=== PATIENT | female | born 2000 | race Caucasian/White ===

== ENCOUNTER → 2022-04-08 | Day surgery (SDC) | payer OTHER ==
[~2022-04-08] MED LIST: Acetaminophen 500 MG TAB ONE; Iron, Sodium Ferric Gluconate 250 MG in Sodium Chloride 0.9% 250 ML 250 ML IVPB SCH; diphenhydrAMINE 25 MG CAP ONE
== END ==
LOC: CSHSDC/OP 08:03
PROVIDERS: ATTEND Student in an Organized Health Care Education/Training Program
DX: N93.9 Abnormal uterine and vaginal bleeding, unspecified (principal)
CPT/HCPCS: J2916; J7050

== ENCOUNTER 2022-04-28 07:17 | Day surgery (SDC) | payer OTHER ==
[2022-04-26 11:36] VITALS: BMI 45.9
[2022-04-27 10:49] LABS: Hemoglobin 12.4 g/dL (12.0-15.5); Mean Corpuscular HGB CONC 31.2 g/dL (32.0-36.0); Mean Corpuscular Hemoglobin 25.6 pg (27.0-33.0); Mean Corpuscular Volume 82.1 fl (81.6-98.3); Mean Platelet Volume 11.1 fl (7.4-10.4); Platelet Count 286 10x3/uL (150-450); RBC Distribution Width 21.6 % (11.5-14.5); Red Blood Cell (RBC) Count 4.85 10x6/uL (3.90-5.03); White Blood Cell (WBC) Count 6.3 10x3/uL (3.5-10.5)
[2022-04-27 11:05] LABS: BHCG - Serum Negative (NEGATIVE); Pregs Control Background? CLEAR/WHITE (CLR/WHITE); Pregs Control Bar Appear? YES (CONTROL BAR)
[2022-04-28] MEDS ORDERED: CeleCOXIB 100 MG CAP ONE (07:32)
[2022-04-28] MEDS ORDERED: PROPOFOL 40 ML ONE (09:00)
[2022-04-28] MEDS ORDERED: Fentanyl 100 MCG/2 ML VIAL ONE (09:00)
[2022-04-28] MEDS ORDERED: Dexamethasone 20 MG/5 ML VIAL ONE (09:02)
[2022-04-28] MEDS ORDERED: Ondansetron PF 4 MG/2 ML Vial ONE (09:02)
[2022-04-28] MEDS ORDERED: Ketorolac Tromethamine 30 MG/ML VIAL ONE (09:03)
[2022-04-28] MEDS ORDERED: Glycopyrrolate 0.2 MG/ML 5 ML SYRINGE ONE (09:27)
[2022-04-28] MEDS ORDERED: HYDROcodone/Acetaminophen 5/325 mg Tablet ONE (10:05)
== END 2022-04-28 10:35 | disposition home or self-care (01) ==
LOC: CSHSDC 07:17
PROVIDERS: ATTEND Student in an Organized Health Care Education/Training Program
PROC: 0UDB8ZX Extraction of Endometrium, Via Natural or Artificial Opening Endoscopic, Diagnostic (ICD-10-PCS; principal; 2022-04-28)
DX: N93.9 Abnormal uterine and vaginal bleeding, unspecified (principal); G89.18 Other acute postprocedural pain; N85.8 Other specified noninflammatory disorders of uterus; D64.9 Anemia, unspecified; J45.909 Unspecified asthma, uncomplicated; E66.9 Obesity, unspecified; Z68.42 Body mass index [BMI] 45.0-49.9, adult; Z91.040 Latex allergy status; Z88.3 Allergy status to other anti-infective agents; Z79.899 Other long term (current) drug therapy; Z87.59 Personal history of other complications of pregnancy, childbirth and the puerperium
CPT/HCPCS: 36415; 84703; 85027; 86850; 86900; 86901; 88305; J1100; J1885; J2405; J2704; J3010

== ENCOUNTER 2023-03-20 14:08 | Day surgery (SDC) | payer BC, OTHER ==
[2023-03-20] MEDS ORDERED: hydrALAZINE 20 MG/ML VIAL SLOW IVP PRN (14:49)
[2023-03-20] MEDS: Lactated Ringer's 1,000 ML IV SCH (15:15)
[2023-03-20 15:16] VITALS: BMI 54.8
[2023-03-20 15:19] LABS: Bilirubin Neg (Negative); Blood, Urine Negative (Negative); Glucose, Urine (Dipstick) Normal (Negative); Ketone, Urine 150 mg/dL (Negative); Leukocyte Negative (Negative); Nitrite Negative (Negative); Protein, Urine (Dipstick) 30 mg/dl (Neg-Trace)
[2023-03-20 15:38] LABS: Clarity Clear (Clear)
[2023-03-20 15:44] LABS: Bacteria/HPF 1+ HPF (None Seen); CAUTI Indications for Culture Pregnancy; Mucous/LPF 2+ LPF (<2+); RBC/HPF 0-3 HPF (0-3); Renal Epithelial 0-3 HPF (None Seen); Transitional Epithelial 0-3 HPF (None Seen); WBC/HPF 0-3 HPF (0-3)
[2023-03-20 15:45] LABS: Urine Culture Reflex Yes Yes
[2023-03-20] MEDS ORDERED: Lactated Ringer's 1,000 ML IV SCH (16:30)
[2023-03-20] MEDS: metroNIDAZOLE 500 MG in Premix 1 BAG IVPB SCH (17:05)
== END 2023-03-20 17:38 | disposition home or self-care (01) ==
LOC: CSHLD/OP 14:08
PROVIDERS: ATTEND Student in an Organized Health Care Education/Training Program
DX: O47.03 False labor before 37 completed weeks of gestation, third trimester (principal); O99.213 Obesity complicating pregnancy, third trimester; E66.9 Obesity, unspecified; O99.283 Endocrine, nutritional and metabolic diseases complicating pregnancy, third trimester; E03.9 Hypothyroidism, unspecified; O99.513 Diseases of the respiratory system complicating pregnancy, third trimester; J45.909 Unspecified asthma, uncomplicated; O99.013 Anemia complicating pregnancy, third trimester; D64.9 Anemia, unspecified; O99.891 Other specified diseases and conditions complicating pregnancy; R35.0 Frequency of micturition; O23.593 Infection of other part of genital tract in pregnancy, third trimester; N89.8 Other specified noninflammatory disorders of vagina; Z79.899 Other long term (current) drug therapy; Z91.048 Other nonmedicinal substance allergy status; Z91.040 Latex allergy status; Z88.8 Allergy status to other drugs, medicaments and biological substances; Z3A.35 35 weeks gestation of pregnancy
CPT/HCPCS: 51701; 76819; 81001; 87086; 87480; 87510; 87660; 96360; 96361; 96365; 99284

== ENCOUNTER 2023-04-06 10:58 | Inpatient (IN) | payer BC ==
[2023-04-06] MEDS ORDERED: hydrALAZINE 20 MG/ML VIAL SLOW IVP PRN ×4 (12:18→14:04)
[2023-04-06 13:27] LABS: #Eosinphils 0.1 10x3/uL (0.0-0.5); #Monocytes 0.4 10x3/uL (0.0-1.1); #Neutrophils 9.4 10x3/uL (1.5-8.4); %Basophils 0.2 % (0.0-2.0); %Eosinophils 1.1 % (0.0-6.0); %Lymphocytes 17.1 % (18.0-47.0); %Monocytes 3.5 % (0.0-10.0); %Neutrophils 77.6 % (40.0-75.0); Hematocrit 37.2 % (34.9-44.5); Mean Corpuscular HGB CONC 34.9 g/dL (32.0-36.0); Mean Corpuscular Hemoglobin 30.5 pg (27.0-33.0); Mean Corpuscular Volume 87.3 fl (81.6-98.3); Mean Platelet Volume 11.1 fl (7.4-10.4); Platelet Count 205 10x3/uL (150-450); RBC Distribution Width 14.2 % (11.5-14.5); Red Blood Cell (RBC) Count 4.26 10x6/uL (3.90-5.03); White Blood Cell (WBC) Count 12.1 10x3/uL (3.5-10.5)
[2023-04-06 13:40] LABS: ALT (SGPT) 10 U/L (8-55); AST (SGOT) 15 U/L (5-34); Albumin 3.4 g/dL (3.5-5.0); Alkaline Phosphatase 109 U/L (40-110); Anion Gap 13 mmol/L (10-20); BUN (Urea Nitrogen) 7 mg/dL (7.0-18.7); Bilirubin, Total 0.5 mg/dL (0.2-1.2); Calc. Creatinine Clearance 0 mL/min (70-130); Calcium 8.9 mg/dL (7.8-10.44); Carbon Dioxide 22 mmol/L (22-29); Chloride 104 mmol/L (98-107); Estimated GFR 130; Globulin 2.8 g/dL (2.4-3.5); Glucose 97 mg/dL (70-105); Potassium 3.7 mmol/L (3.5-5.1); Protein, Total 6.2 g/dL (6.0-8.3); Sodium 135 mmol/L (136-145)
[2023-04-06] MEDS: NIFEdipine 10 MG CAP ONE (13:57)
[2023-04-06] MEDS ORDERED: HYDROcodone/Acetaminophen 5/325 mg Tablet PO PRN (14:04)
[2023-04-06] MEDS ORDERED: Calcium Gluc 4.6 MEQ/10 ML (100 MG/ML) SLOW IVP PRN (14:04)
[2023-04-06] MEDS ORDERED: Labetalol HCl 100 MG/20 ML VIAL SLOW IVP PRN ×2 (14:04)
[2023-04-06] MEDS ORDERED: Misoprostol 200 MCG TAB PR PRN (14:04)
[2023-04-06] MEDS ORDERED: Lidocaine 1% (PF) 30 ML VIAL SC PRN (14:04)
[2023-04-06] MEDS ORDERED: Promethazine HCl 25 MG/ML VIAL IM PRN ×2 (14:04→20:23)
[2023-04-06] MEDS ORDERED: Carboprost 250 MCG/ML AMP IM PRN (14:04)
[2023-04-06] MEDS ORDERED: Lorazepam 2 MG/ML VIAL SLOW IVP PRN (14:04)
[2023-04-06] MEDS ORDERED: Diphenoxylate HCl/Atropine Tablet PO PRN (14:04)
[2023-04-06 14:20] VITALS: BMI 56.0
[2023-04-06 14:42] LABS: Hematocrit 38.4 % (34.9-44.5); Mean Corpuscular HGB CONC 33.9 g/dL (32.0-36.0); Mean Corpuscular Hemoglobin 29.7 pg (27.0-33.0); Mean Corpuscular Volume 87.9 fl (81.6-98.3); RBC Distribution Width 14.2 % (11.5-14.5); Red Blood Cell (RBC) Count 4.37 10x6/uL (3.90-5.03); White Blood Cell (WBC) Count 12.7 10x3/uL (3.5-10.5)
[2023-04-06 14:51] LABS: Platelet Count 220 10x3/uL (150-450)
[2023-04-06 15:01] LABS: ALT (SGPT) 10 U/L (8-55); AST (SGOT) 14 U/L (5-34); Albumin 3.5 g/dL (3.5-5.0); Alkaline Phosphatase 112 U/L (40-110); Anion Gap 16 mmol/L (10-20); BUN (Urea Nitrogen) 7 mg/dL (7.0-18.7); Bilirubin, Total 0.5 mg/dL (0.2-1.2); Calc. Creatinine Clearance 315 mL/min (70-130); Calcium 8.6 mg/dL (7.8-10.44); Carbon Dioxide 21 mmol/L (22-29); Chloride 105 mmol/L (98-107); Estimated GFR 130; Globulin 2.4 g/dL (2.4-3.5); Glucose 91 mg/dL (70-105); Potassium 4.1 mmol/L (3.5-5.1); Protein, Total 5.9 g/dL (6.0-8.3); Sodium 138 mmol/L (136-145)
[2023-04-06 15:19] LABS: Syphilis Antibody Nonreactive (Nonreactive); Syphilis Antibody Index 0.04 S/CO (<1.00 Non-Reactive)
[2023-04-06 15:20] LABS: HBSAg Index 0.19 S/CO (0-0.99); Hep B Surf Ag - L&D Non-Reactive S/CO (NonReactive)
[2023-04-06] MEDS: Ondansetron PF 4 MG/2 ML Vial IVP PRN (17:12)
[2023-04-06] MEDS: fentaNYL 50 mcg/mL 1 mL Vial SLOW IVP PRN (17:44)
[2023-04-06] MEDS: Acetaminophen 500 MG TAB PO PRN (17:55)
[2023-04-06] MEDS: fentaNYL/Ropivacaine Epidural 100 ML ONE (20:01)
[2023-04-06] MEDS ORDERED: Moisturizing Cream (Eucerin) 113 GM JAR TOP PRN (20:23)
[2023-04-06] MEDS ORDERED: ePHEDrine Sulfate 50 MG/10 ML VIAL SLOW IVP PRN (20:23)
[2023-04-06] MEDS ORDERED: Lactated Ringer's 500 ML IV PRN (20:23)
[2023-04-06] MEDS ORDERED: Naloxone HCl 0.4 mg/ml Vial IVP PRN ×2 (20:23)
[2023-04-06] MEDS ORDERED: Acetaminophen 325 MG TAB PO PRN (20:23)
[2023-04-06] MEDS ORDERED: Ondansetron PF 4 MG/2 ML Vial IVP PRN (20:23)
[2023-04-06] MEDS ORDERED: diphenhydrAMINE 50 MG/ML VIAL IVP PRN (20:23)
[2023-04-06] MEDS ORDERED: Communication Order-Pharmacy FS SCH (20:30)
[2023-04-06] MEDS: Magnesium Sulfate 20 gm/500 ml 20 GM/500 ML BAG IVPB SCH (23:03)
[2023-04-07] MEDS: Oxytocin 30 units/NS 500 ML 500 ML IV SCH (06:05)
[2023-04-07] MEDS: fentaNYL 2 mcg/Ropivacaine 0.2% Epidural 100 ML CADD EPIDURAL SCH (06:28)
[2023-04-07] MEDS: Lactated Ringer's 1,000 ML IV SCH (14:58)
[2023-04-07] MEDS ORDERED: Naloxone HCl 0.4 mg/ml Vial IV PRN (22:16)
[2023-04-07] MEDS ORDERED: diphenhydrAMINE 50 MG/ML VIAL IVP PRN (22:16)
[2023-04-07] MEDS ORDERED: Ondansetron PF 4 MG/2 ML Vial IVP PRN ×2 (22:16)
[2023-04-07] MEDS ORDERED: fentaNYL 50 mcg/mL 1 mL Vial SLOW IVP PRN (22:16)
[2023-04-07] MEDS ORDERED: Promethazine HCl 25 MG SUPP PR PRN (22:16)
[2023-04-07] MEDS ORDERED: Ketorolac Tromethamine 30 MG (1 mL) VIAL IVP PRN (22:16)
[2023-04-07] MEDS ORDERED: Meperidine HCl/PF 25 MG (1 mL) VIAL SLOW IVP PRN (22:16)
[2023-04-07] MEDS ORDERED: Promethazine HCl 25 MG/ML VIAL IM PRN (22:16)
[2023-04-07] MEDS ORDERED: Moisturizing Cream (Eucerin) 113 GM JAR TOP PRN (22:16)
[2023-04-07] MEDS ORDERED: Naloxone HCl 0.4 mg/ml Vial IVP PRN ×2 (22:16)
[2023-04-07] MEDS ORDERED: Communication Order-Pharmacy FS SCH (22:30)
[2023-04-07] MEDS ORDERED: Ketorolac Tromethamine 30 MG (1 mL) VIAL IVP SCH (22:30)
[2023-04-08] MEDS ORDERED: Lanolin Ointment 7 GM TUBE TOP PRN ×2 (12:41→22:20)
[2023-04-08] MEDS ORDERED: Lorazepam 2 MG/ML VIAL SLOW IVP PRN (12:41)
[2023-04-08] MEDS ORDERED: Ondansetron PF 4 MG/2 ML Vial IVP PRN ×2 (12:41→22:20)
[2023-04-08] MEDS ORDERED: hydrALAZINE 20 MG/ML VIAL SLOW IVP PRN ×4 (12:41→22:20)
[2023-04-08] MEDS ORDERED: diphenhydrAMINE 25 MG CAP PO PRN ×2 (12:41→22:20)
[2023-04-08] MEDS ORDERED: HYDROcodone/Acetaminophen 5/325 mg Tablet PO PRN ×2 (12:41→22:20)
[2023-04-08] MEDS ORDERED: Magnesium Sulfate 20 gm/500 ml 20 GM/500 ML BAG IVPB SCH (12:41)
[2023-04-08] MEDS ORDERED: Boostrix 0.5 ML (Tdap) VIAL (>/=7 yrs of age) IM ONE (12:41)
[2023-04-08] MEDS ORDERED: Acetaminophen 325 MG TAB PO PRN ×2 (12:41→22:20)
[2023-04-08] MEDS ORDERED: Calcium Gluc 4.6 MEQ/10 ML (100 MG/ML) SLOW IVP PRN (12:41)
[2023-04-08] MEDS ORDERED: Promethazine HCl 25 MG/ML VIAL IM PRN ×2 (12:41→22:20)
[2023-04-08] MEDS ORDERED: Bisacodyl 10 MG SUPP PR PRN ×2 (12:41→22:20)
[2023-04-08] MEDS ORDERED: Labetalol HCl 100 MG/20 ML VIAL SLOW IVP PRN ×2 (12:41)
[2023-04-08] MEDS ORDERED: Ibuprofen 800 MG TAB PO SCH (14:00)
[2023-04-08] MEDS: Simethicone Chewable 80 MG TAB PO PRN (19:08)
[2023-04-08] MEDS: HYDROcodone/Acetaminophen 5/325 mg Tablet PO PRN (20:22)
[2023-04-08] MEDS ORDERED: Ferrous Sulfate 325 MG TAB PO SCH (21:00)
[2023-04-08] MEDS ORDERED: Docusate 100 MG CAP PO SCH (21:00)
[2023-04-08] MEDS: Prenatal Vitamin 1 TAB PO SCH (23:06)
[2023-04-08] MEDS: Ferrous Sulfate 325 MG TAB PO SCH ×2 (23:06)
[2023-04-08] MEDS: Docusate 100 MG CAP PO SCH ×2 (23:06→23:43)
[2023-04-08] MEDS: Ibuprofen 800 MG TAB PO SCH (23:43)
[2023-04-09] MEDS: HYDROcodone/Acetaminophen 5/325 mg Tablet PO PRN (02:15)
[2023-04-09] MEDS: Docusate 100 MG CAP PO SCH (08:06)
[2023-04-09] MEDS: Prenatal Vitamin 1 TAB PO SCH (08:06)
[2023-04-09] MEDS: Simethicone Chewable 80 MG TAB PO PRN (08:48)
[2023-04-09] MEDS ORDERED: Prenatal Vitamin 1 TAB PO SCH (09:00)
[2023-04-09] MEDS: Misoprostol 200 MCG TAB ONE (14:56)
[2023-04-09] MEDS: Oxytocin 30 units/NS 500 ML 500 ML ONE (14:56)
[2023-04-09] MEDS: Ferrous Sulfate 325 MG TAB PO SCH (14:56)
[2023-04-09] MEDS: PHENYLEPHRINE-NS 100 MCG/ML 10 ML SYRINGE ONE (14:56)
[2023-04-09] MEDS: Tranexamic Acid 1,000 MG/10 ML VIAL ONE (14:56)
[2023-04-09] MEDS: Morphine PF 10 MG/10 ML VIAL ONE (14:57)
[2023-04-09] MEDS: Oxytocin 10 UNITS/ML VIAL ONE (14:58)
[2023-04-09] MEDS: CEFAZOLIN 2 GM VIAL ONE (14:58)
[2023-04-09] MEDS: Magnesium Sulfate 20 gm/500 ml 20 GM/500 ML BAG ONE (14:58)
[2023-04-09] MEDS: Ondansetron PF 4 MG/2 ML Vial ONE (14:58)
[2023-04-09] MEDS: Dexamethasone 4 mg/ml Vial ONE (14:58)
[2023-04-09] MEDS: Azithromycin 500 MG VIAL ONE ×2 (14:58)
[2023-04-10 08:35] VITALS: BP 129/62; TEMP 98.2
== END 2023-04-10 11:50 | disposition home or self-care (01) | DRG 788 ==
LOC: CSHLD/OP 10:58 → CSHLD 14:40 → CSHPP 04-08 22:14
PROVIDERS: ADMIT Student in an Organized Health Care Education/Training Program; ATTEND Student in an Organized Health Care Education/Training Program
PROC: 10D00Z1 Extraction of Products of Conception, Low, Open Approach (ICD-10-PCS; principal; 2023-04-07)
PROC: 0U7C7ZZ Dilation of Cervix, Via Natural or Artificial Opening (ICD-10-PCS; 2023-04-07)
PROC: 10H07YZ Insertion of Other Device into Products of Conception, Via Natural or Artificial Opening (ICD-10-PCS; 2023-04-07)
PROC: 10907ZC Drainage of Amniotic Fluid, Therapeutic from Products of Conception, Via Natural or Artificial Opening (ICD-10-PCS; 2023-04-08)
PROC: 3E0234Z Introduction of Serum, Toxoid and Vaccine into Muscle, Percutaneous Approach (ICD-10-PCS; 2023-04-08)
DX: O13.4 Gestational [pregnancy-induced] hypertension without significant proteinuria, complicating childbirth (principal); E66.9 Obesity, unspecified; O14.14 Severe pre-eclampsia complicating childbirth; O99.214 Obesity complicating childbirth; O34.211 Maternal care for low transverse scar from previous cesarean delivery; Z3A.38 38 weeks gestation of pregnancy; Z37.0 Single live birth; O62.1 Secondary uterine inertia; Z88.8 Allergy status to other drugs, medicaments and biological substances; Z91.040 Latex allergy status; Z23 Encounter for immunization
CPT/HCPCS: 36415; 51702; 80053; 82570; 84156; 85025; 85461; 86780; 86850; 86900; 86901; 87340; 90384; 96372; 99285; J0360; J1100; J2274; J2405; J2590; J3010; J3475; J7120